=== PATIENT | male | born 1940 | race Caucasian/White ===

== ENCOUNTER 2019-08-31 13:20 | Emergency (ER) | payer OTHER, MEDICARE ==
[2019-08-31] MEDS ORDERED: ALTOPREV20 MG PO (14:16)
[2019-08-31] MEDS ORDERED: ASPIRIN 81 LOW81 MG (14:17)
[2019-08-31] MEDS ORDERED: LABETALOL200 MG PO (14:17)
[2019-08-31] MEDS ORDERED: LISINOPRIL20 MG PO (14:17)
[2019-08-31] MEDS ORDERED: NORVASC5 M1 PO (14:17)
[2019-08-31] MEDS ORDERED: SYMBICORT 80-4.5MCG IN (14:18)
[2019-08-31] MEDS ORDERED: BICALUTAMIDE50 MG PO (14:19)
[2019-08-31 14:28] LABS: HEMATOCRIT 41.3 % (39.0-50.0); HEMOGLOBIN 13.7 g/dl (14.0-18.0); IMMATURE GRANULOCYTES 0.2 % (0.0-5.0); MEAN CELL VOLUME 89.4 fL CALC (80.0-100.0); MEAN CORPUSCULAR HGB 29.7 pG CALC (26.0-32.0); MEAN CORPUSCULAR HGB CONC 33.2 g/dL CAL (32.0-36.0); NEUT# 5.91 thou/uL (1.82-7.42); RED BLOOD COUNT 4.62 mill/uL (4.70-6.10); RED CELL DISTRI WIDTH 13.3 % (11.5-15.5)
[2019-08-31 14:52] LABS: ACT PARTIAL THROMBO TIME 29.4 SECONDS (20.0-32.5); ALBUMIN 4.3 g/dL (3.2-5.0); ALKALINE PHOSPHATASE 86 u/l (38-126); ANION GAP 12 (6-22 (CALC)); BILIRUBIN, TOTAL 0.8 mg/dL (0.0-1.4); BUN 19 mg/dL (8-23); BUN/CREATININE RATIO 20 (12-20 (CALC)); CARBON DIOXIDE 26 mmol/l (22-30); CHLORIDE 102 mmol/l (95-108); GFR > 60 ML/MIN (>=60 (CALC)); GFR FOR AFR.AMER. > 60 ML/MIN (>=60 (CALC)); PROTHROMBIN TIME 10.9 SECONDS (9.0-12.5); SGOT/AST 25 u/l (19-48); SODIUM 136 mmol/l (137-146); TOTAL PROTEIN 7.1 g/dL (6.3-8.2)
[2019-08-31] MEDS ORDERED: FLONASE AL50 MCG/ACT (16:27)
[2019-08-31] MEDS ORDERED: CLARITIN10 M1 PO ×2 (16:27)
[2019-08-31 16:40] VITALS: BP 147/67
== END 2019-08-31 16:45 | disposition home or self-care (01) | DRG 305 ==
LOC: ED 13:20
DX: I10 Essential (primary) hypertension (principal); H66.91 Otitis media, unspecified, right ear; J44.9 Chronic obstructive pulmonary disease, unspecified; Z95.5 Presence of coronary angioplasty implant and graft
CPT/HCPCS: Q9967

== ENCOUNTER 2019-12-31 09:18 | Emergency (ER) | payer OTHER, MEDICARE ==
[~2019-12-31] VITALS: Ht 172.7 cm; Wt 81.8 kg
[~2019-12-31 09:18] MED LIST: ALTOPREV20 MG PO; ASPIRIN 81 LOW81 MG; BICALUTAMIDE50 MG PO; CLARITIN10 M1 PO; FLONASE AL50 MCG/ACT; LABETALOL200 MG PO; LISINOPRIL20 MG PO; NORVASC5 M1 PO; SYMBICORT 80-4.5MCG IN
[2019-12-31] MEDS ORDERED: FLEXERIL5 M1 PO (10:46)
[2019-12-31] MEDS ORDERED: IBUPROFEN600 MG PO (10:46)
[2019-12-31 11:21] VITALS: BP 156/80
== END 2019-12-31 11:00 | disposition home or self-care (01) | DRG 563 ==
LOC: ED 09:18
DX: S39.012A Strain of muscle, fascia and tendon of lower back, initial encounter (principal); I10 Essential (primary) hypertension; J44.9 Chronic obstructive pulmonary disease, unspecified; I71.4 Abdominal aortic aneurysm, without rupture; X50.0XXA Overexertion from strenuous movement or load, initial encounter; Y93.H2 Activity, gardening and landscaping; Y92.007 Garden or yard of unspecified non-institutional (private) residence as the place of occurrence of the external cause; Z95.5 Presence of coronary angioplasty implant and graft

== ENCOUNTER 2020-02-04 10:21 | Emergency (ER) | payer OTHER, MEDICARE ==
[~2020-02-04] VITALS: Ht 172.7 cm; Wt 90.0 kg
[~2020-02-04 10:21] MED LIST changes: +FLEXERIL5 M1 PO; +IBUPROFEN600 MG PO
[2020-02-04] MEDS ORDERED: HYDROCO/APAP1 TA9 PO (11:05)
[2020-02-04] MEDS ORDERED: VALACYCLOVIR500 MG PO (11:05)
[2020-02-04 11:24] VITALS: BP 142/84
== END 2020-02-04 11:35 | disposition home or self-care (01) | DRG 596 ==
LOC: ED 10:21
DX: B02.9 Zoster without complications (principal); I10 Essential (primary) hypertension; J44.9 Chronic obstructive pulmonary disease, unspecified; Z95.5 Presence of coronary angioplasty implant and graft

== ENCOUNTER 2020-10-30 09:52 | Emergency (ER) | payer OTHER, MEDICARE ==
[~2020-10-30 09:52] MED LIST changes: +HYDROCO/APAP1 TA9 PO; +VALACYCLOVIR500 MG PO
[2020-10-30 11:35] VITALS: BP 131/83
== END 2020-10-30 11:35 | disposition home or self-care (01) | DRG 918 ==
LOC: ED 09:52
DX: T63.461A Toxic effect of venom of wasps, accidental (unintentional), initial encounter (principal); I10 Essential (primary) hypertension; J44.9 Chronic obstructive pulmonary disease, unspecified; F17.200 Nicotine dependence, unspecified, uncomplicated; Y92.007 Garden or yard of unspecified non-institutional (private) residence as the place of occurrence of the external cause; Z95.5 Presence of coronary angioplasty implant and graft

== ENCOUNTER 2021-06-25 03:39 | Emergency (ER) | payer OTHER, MEDICARE ==
[~2021-06-25] VITALS: Ht 172.7 cm; Wt 82.0 kg
[2021-06-25 03:51] VITALS: BP 172/87
[2021-06-25 04:26] LABS: HEMATOCRIT 37.1 % (39.0-50.0); HEMOGLOBIN 12.4 g/dl (14.0-18.0); IMMATURE GRANULOCYTES 0.7 % (0.0-5.0); MEAN CELL VOLUME 91.6 fL CALC (80.0-100.0); MEAN CORPUSCULAR HGB 30.6 pG CALC (26.0-32.0); MEAN CORPUSCULAR HGB CONC 33.4 g/dL CAL (32.0-36.0); NEUT# 6.61 thou/uL (1.82-7.42); RED BLOOD COUNT 4.05 mill/uL (4.70-6.10); RED CELL DISTRI WIDTH 14.2 % (11.5-15.5)
[2021-06-25 04:48] LABS: ALBUMIN 3.7 g/dL (3.2-5.0); ALKALINE PHOSPHATASE 85 u/l (38-126); AMYLASE 61 u/l (30-110); ANION GAP 9 (6-22 (CALC)); BUN 18 mg/dL (8-23); BUN/CREATININE RATIO 20 (12-20 (CALC)); CARBON DIOXIDE 33 mmol/l (22-30); CHLORIDE 89 mmol/l (95-108); CREATININE 0.9 mg/dL (0.7-1.3); GFR > 60 ML/MIN (>=60 (CALC)); GFR FOR AFR.AMER. > 60 ML/MIN (>=60 (CALC)); LIPASE 43 u/l (23-300); POTASSIUM 3.1 mmol/l (3.5-5.1); SGOT/AST 27 u/l (19-48); SODIUM 128 mmol/l (137-146); TOTAL PROTEIN 6.4 g/dL (6.3-8.2)
[2021-06-25 05:51] LABS: URINE BILIRUBIN - DIPSTICK NEGATIVE (NEGATIVE); URINE BLOOD DIPSTICK TRACE-INTACT (NEGATIVE); URINE COLOR YELLOW; URINE GLUCOSE - DIPSTICK NEGATIVE (NEGATIVE); URINE KETONE TRACE mg/dL (NEGATIVE); URINE LEUK ESTERASE NEGATIVE (NEGATIVE); URINE PROTEIN - DIPSTICK NEGATIVE (NEG-TRACE); URINE SPECIFIC GRAVITY 1.015; URINE UROBILINOGEN - DIPSTICK 0.2 E.U./dL (0.2)
[2021-06-25 05:56] LABS: URINE NITRITE - DIPSTICK NEGATIVE (Negative)
[2021-06-25] MEDS ORDERED: PROMETHAZINE HY25 M1 PO (06:34)
[2021-06-25 06:54] VITALS: BP 172/87
== END 2021-06-25 07:33 | disposition home or self-care (01) | DRG 392 ==
LOC: ED 03:39
PROVIDERS: Family Medicine
DX: K52.9 Noninfective gastroenteritis and colitis, unspecified (principal); I10 Essential (primary) hypertension; J44.9 Chronic obstructive pulmonary disease, unspecified; Z85.46 Personal history of malignant neoplasm of prostate; Z20.822 Contact with and (suspected) exposure to COVID-19

== ENCOUNTER 2021-09-26 19:16 | Emergency (ER) | payer OTHER, MEDICARE ==
[2021-09-26] VITALS (11 sets, daily range): BP systolic 142–199; BP diastolic 76–98
[~2021-09-26] VITALS: Ht 172.7 cm; Wt 84.9 kg
[~2021-09-26 19:16] MED LIST changes: +LISINOPRIL20 M1 PO; -LISINOPRIL20 MG PO; +PROMETHAZINE HY25 M1 PO
[2021-09-26] MEDS ORDERED: ABIRATERONE AC250 MG PO (19:52)
[2021-09-26] MEDS ORDERED: PREDNISONE5 MG PO (19:53)
[2021-09-26 20:09] LABS: HEMATOCRIT 37.4 % (39.0-50.0); HEMOGLOBIN 12.4 g/dl (14.0-18.0); IMMATURE GRANULOCYTES 0.2 % (0.0-5.0); MEAN CORPUSCULAR HGB 30.8 pG CALC (26.0-32.0); MEAN CORPUSCULAR HGB CONC 33.2 g/dL CAL (32.0-36.0); NEUT# 7.58 thou/uL (1.82-7.42); RED BLOOD COUNT 4.02 mill/uL (4.70-6.10); RED CELL DISTRI WIDTH 14.1 % (11.5-15.5)
[2021-09-26 20:20] LABS: ALKALINE PHOSPHATASE 84 u/l (38-126); ANION GAP 10 (6-22 (CALC)); BILIRUBIN, TOTAL 0.7 mg/dL (0.0-1.4); BUN 31 mg/dL (8-23); BUN/CREATININE RATIO 29 (12-20 (CALC)); CARBON DIOXIDE 29 mmol/l (22-30); CHLORIDE 90 mmol/l (95-108); CREATININE 1.1 mg/dL (0.7-1.3); GFR FOR AFR.AMER. > 60 ML/MIN (>=60 (CALC)); GFR OTHER RACES > 60 ML/MIN (>=60 (CALC)); SGOT/AST 26 u/l (19-48); SODIUM 125 mmol/l (137-146); TOTAL PROTEIN 6.8 g/dL (6.3-8.2)
[2021-09-26 20:21] LABS: POTASSIUM 3.8 mmol/l (3.5-5.1)
[2021-09-26 20:32] LABS: MYOGLOBIN 143 ng/mL (0 - 121)
[2021-09-26] MEDS ORDERED: SOD CHLORIDE1 G2 OD (22:30)
== END 2021-09-26 23:02 | disposition home or self-care (01) | DRG 305 ==
LOC: ED 19:16
PROVIDERS: Family Medicine
DX: I10 Essential (primary) hypertension (principal); E87.1 Hypo-osmolality and hyponatremia; J44.9 Chronic obstructive pulmonary disease, unspecified; Z95.5 Presence of coronary angioplasty implant and graft

== ENCOUNTER 2021-10-31 02:29 | Emergency (ER) | payer OTHER, MEDICARE ==
[~2021-10-31] VITALS: Ht 172.7 cm; Wt 81.6 kg
[2021-10-31] VITALS (10 sets, daily range): BP systolic 154–203; BP diastolic 87–115
[~2021-10-31 02:29] MED LIST changes: +ABIRATERONE AC250 MG PO; +PREDNISONE5 MG PO; +SOD CHLORIDE1 G2 OD
[2021-10-31 03:21] LABS: HEMATOCRIT 38.8 % (39.0-50.0); HEMOGLOBIN 12.7 g/dl (14.0-18.0); IMMATURE GRANULOCYTES 0.3 % (0.0-5.0); MEAN CORPUSCULAR HGB 30.5 pG CALC (26.0-32.0); MEAN CORPUSCULAR HGB CONC 32.7 g/dL CAL (32.0-36.0); NEUT# 7.62 thou/uL (1.82-7.42); RED BLOOD COUNT 4.17 mill/uL (4.70-6.10); RED CELL DISTRI WIDTH 14.1 % (11.5-15.5)
[2021-10-31 04:03] LABS: ALBUMIN 4.1 g/dL (3.2-5.0); ALKALINE PHOSPHATASE 84 u/l (38-126); BILIRUBIN, TOTAL 0.6 mg/dL (0.0-1.4); BUN 33 mg/dL (8-23); BUN/CREATININE RATIO 26 (12-20 (CALC)); CARBON DIOXIDE 27 mmol/l (22-30); CHLORIDE 96 mmol/l (95-108); CREATININE 1.3 mg/dL (0.7-1.3); GFR FOR AFR.AMER. > 60 ML/MIN (>=60 (CALC)); GFR OTHER RACES 53 ML/MIN (>=60 (CALC)); SGOT/AST 27 u/l (19-48); SODIUM 131 mmol/l (137-146); TOTAL PROTEIN 6.7 g/dL (6.3-8.2)
[2021-10-31 04:12] LABS: ANION GAP 13 (6-22 (CALC)); POTASSIUM 4.7 mmol/l (3.5-5.1)
[2021-10-31 04:14] LABS: MYOGLOBIN 152 ng/mL (0 - 121)
== END 2021-10-31 05:15 | disposition home or self-care (01) | DRG 305 ==
LOC: ED 02:29
PROVIDERS: Emergency Medicine
DX: I10 Essential (primary) hypertension (principal); J44.9 Chronic obstructive pulmonary disease, unspecified; Z95.5 Presence of coronary angioplasty implant and graft; Z20.822 Contact with and (suspected) exposure to COVID-19

== ENCOUNTER 2021-11-02 09:15 | Observation (INO) | payer OTHER, MEDICARE ==
[2021-11-02] VITALS (23 sets, daily range): BP systolic 110–182; BP diastolic 67–95
[~2021-11-02] VITALS: Ht 172.7 cm; Wt 81.8 kg
--- NOTE | 2021-11-02 09:20 | NUR ---
PT AMB TO ROOM WITH STEADY GAIT WITH SPOUSE
[2021-11-02 09:50] LABS: ALBUMIN 3.7 g/dL (3.2-5.0); ALKALINE PHOSPHATASE 73 u/l (38-126); ANION GAP 11 (6-22 (CALC)); BILIRUBIN, TOTAL 1.1 mg/dL (0.0-1.4); BUN 25 mg/dL (8-23); BUN/CREATININE RATIO 24 (12-20 (CALC)); CARBON DIOXIDE 28 mmol/l (22-30); CHLORIDE 87 mmol/l (95-108); GFR FOR AFR.AMER. > 60 ML/MIN (>=60 (CALC)); GFR OTHER RACES > 60 ML/MIN (>=60 (CALC)); POTASSIUM 3.9 mmol/l (3.5-5.1); SGOT/AST 26 u/l (19-48); SODIUM 122 mmol/l (137-146); TOTAL PROTEIN 6.1 g/dL (6.3-8.2)
--- NOTE | 2021-11-02 10:00 | NUR ---
reassessment done. nad. vitals stable. call light in reach
[2021-11-02 10:05] LABS: HEMATOCRIT 36.4 % (39.0-50.0); HEMOGLOBIN 12.5 g/dl (14.0-18.0); IMMATURE GRANULOCYTES 0.2 % (0.0-5.0); MEAN CELL VOLUME 89.7 fL CALC (80.0-100.0); MEAN CORPUSCULAR HGB 30.8 pG CALC (26.0-32.0); MEAN CORPUSCULAR HGB CONC 34.3 g/dL CAL (32.0-36.0); NEUT# 8.45 thou/uL (1.82-7.42); RED BLOOD COUNT 4.06 mill/uL (4.70-6.10); RED CELL DISTRI WIDTH 13.4 % (11.5-15.5)
[2021-11-02 10:19] LABS: URINE BLOOD DIPSTICK TRACE-INTACT (NEGATIVE); URINE COLOR YELLOW; URINE GLUCOSE - DIPSTICK NEGATIVE (NEGATIVE); URINE KETONE 15 mg/dL (NEGATIVE); URINE LEUK ESTERASE NEGATIVE (NEGATIVE); URINE PH 6.5 (4.5-8.0); URINE PROTEIN - DIPSTICK NEGATIVE (NEG-TRACE); URINE UROBILINOGEN - DIPSTICK 0.2 E.U./dL (0.2)
[2021-11-02 10:37] LABS: URINE BILIRUBIN - DIPSTICK SMALL (NEGATIVE); URINE NITRITE - DIPSTICK NEGATIVE (Negative)
--- NOTE | 2021-11-02 11:04 | NUR ---
reassessment done. nad. vitals stable. call light in reach.
[2021-11-02] MEDS ORDERED: SYMBICORT 80-4.5MCG IN (11:26)
--- NOTE | 2021-11-02 12:44 | NUR ---
REASSESMENT DONE. NAD. VITALS STABLE. CALL LIGHT IN REACH.
--- NOTE | 2021-11-02 13:10 | NUR ---
REASSESSMENT DONE. NAD. VITALS STABLE. CALL LIGHT IN REACH.
--- NOTE | 2021-11-02 14:00 | NUR ---
REASSESSMENT DONE. NAD. VITALS STABLE. CALL LIGHT IN REACH
--- NOTE | 2021-11-02 14:09 | NUR ---
Reassessment done. NAD. VITALS STABLE. CALL LIGHT IN REACH.
--- NOTE | 2021-11-02 15:45 | NUR ---
REASSESSMENT DONE. NAD. VITALS STABLE. CALL LIGHT IN REACH.
--- NOTE | 2021-11-02 16:51 | NUR ---
patient transported to [facility] surge room 269. report given to christopher hatch
--- NOTE | 2021-11-02 19:00 | NUR ---
RECAEIVE REPORT FROM RAFAEL SANTOS.
--- NOTE | 2021-11-02 19:30 | NUR ---
PATIENT IN BED RESTING/ NO S/S OF DISTRESS NOTED. DENIES PAIN AT THIS TIME ADMISSION ASSESMENT COMPLETED AT THIS TIME. PATIENT HAS A 18G IV TO RAC WITH NS AT 50ML/HR INFUSING WELL WITHOUT COMPLICATIONS. ADMISSION DX HYPONATREMIA. SODIUM AT 122. PT ON TELE. CALL LIGHT IN REACH AND BED IN LOWEST POSITION. CONTINUE TO MONITOR.
[2021-11-02 21:59] LABS: ANION GAP 8 (6-22 (CALC)); BUN 24 mg/dL (8-23); BUN/CREATININE RATIO 25 (12-20 (CALC)); CARBON DIOXIDE 28 mmol/l (22-30); CHLORIDE 89 mmol/l (95-108); GFR FOR AFR.AMER. > 60 ML/MIN (>=60 (CALC)); GFR OTHER RACES > 60 ML/MIN (>=60 (CALC)); POTASSIUM 3.7 mmol/l (3.5-5.1); SODIUM 121 mmol/l (137-146)
--- NOTE | 2021-11-02 22:45 | NUR ---
PATIENT COMPLAING OF NAUSEA. DR CLEVELAND NOTIFIED AND ONDER ZOFRAN 4 MG IV. PATIENT MEDICATED ORDER. CONTINUE TO MONITOR.
[2021-11-03 00:07] VITALS: BP 153/80
--- NOTE | 2021-11-03 00:28 | NUR ---
PATIENT IN BED RESTING WITH EYES CLOSED BREATHING EVEN AND UNLABORED. NO S/S OF DISTRESS NOTED. CALL LIGHT IN REACH AND BED IN LOWEST POSITION. CONTINUE TO MONITOR.
[2021-11-03 04:04] VITALS: BP 134/77
--- NOTE | 2021-11-03 04:30 | NUR ---
PATIEN IN BED RESTING WITH EYES CLOSED BREATHING EVEN AND UNALBORED NO S/S OF DISTRESS NOTED. CALL LIGHT IN REACH AND BED IN LOWEST POSITION.
[2021-11-03 05:23] LABS: HEMOGLOBIN 11.6 g/dl (14.0-18.0); IMMATURE GRANULOCYTES 0.2 % (0.0-5.0); MEAN CELL VOLUME 88.9 fL CALC (80.0-100.0); MEAN CORPUSCULAR HGB 31.3 pG CALC (26.0-32.0); MEAN CORPUSCULAR HGB CONC 35.2 g/dL CAL (32.0-36.0); NEUT# 7.13 thou/uL (1.82-7.42); RED BLOOD COUNT 3.71 mill/uL (4.70-6.10); RED CELL DISTRI WIDTH 13.3 % (11.5-15.5)
[2021-11-03 07:15] VITALS: BP 118/75
[2021-11-03 07:17] LABS: MAGNESIUM 1.8 mg/dL (1.6-2.3)
[2021-11-03 07:19] LABS: ALKALINE PHOSPHATASE 62 u/l (38-126); ANION GAP 6 (6-22 (CALC)); BILIRUBIN, TOTAL 0.7 mg/dL (0.0-1.4); BUN 19 mg/dL (8-23); BUN/CREATININE RATIO 21 (12-20 (CALC)); CARBON DIOXIDE 29 mmol/l (22-30); CHLORIDE 90 mmol/l (95-108); CREATININE 0.9 mg/dL (0.7-1.3); GFR FOR AFR.AMER. > 60 ML/MIN (>=60 (CALC)); GFR OTHER RACES > 60 ML/MIN (>=60 (CALC)); POTASSIUM 3.4 mmol/l (3.5-5.1); SGOT/AST 22 u/l (19-48); SODIUM 122 mmol/l (137-146); TOTAL PROTEIN 4.9 g/dL (6.3-8.2)
[2021-11-03 07:24] LABS: ALBUMIN 2.8 g/dL (3.2-5.0)
--- NOTE | 2021-11-03 08:00 | NUR ---
patient is a/ox3 able to make needs known to staff. denies pain at this time. stated he felt "a little nausea before breakfast". offered ama peng and crackers, informed him if that doesnt help call me and ill give him more zofran. he stated that was a great plan. clear speech. 3mm perrl bilat eyes. clear lung sounds. active bowel sounds. soft non tender abdomen. no edema present at this time. strong pulses. safety measures in place. call light in reach. will continue to monitor per hospital's policy.
[2021-11-03 09:48] LABS: ANION GAP 6 (6-22 (CALC)); BUN 20 mg/dL (8-23); BUN/CREATININE RATIO 23 (12-20 (CALC)); CARBON DIOXIDE 28 mmol/l (22-30); CHLORIDE 90 mmol/l (95-108); CREATININE 0.9 mg/dL (0.7-1.3); GFR FOR AFR.AMER. > 60 ML/MIN (>=60 (CALC)); GFR OTHER RACES > 60 ML/MIN (>=60 (CALC)); POTASSIUM 3.2 mmol/l (3.5-5.1); SODIUM 121 mmol/l (137-146)
[2021-11-03 10:29] VITALS: BP 125/75
[2021-11-03] MEDS ORDERED: ONDANSETRON4 MG PO (11:46)
--- NOTE | 2021-11-03 13:13 | NUR ---
REVIEWED D/C PAPERWORK WITH EBER AND HIS AT THE BEDSIDE. STATED HE UNDERSTOOD. SIGNED FORM. REMOVED IV, ALLOWED HIM TO GET DRESSED.
--- NOTE | 2021-11-03 13:25 | NUR ---
PATIENT WHEELED DOWN TO HIS CAR, AT SIDE WITH HIS BELONGINGS, STABLE.
== END 2021-11-03 13:27 | disposition home or self-care (01) | DRG 641 ==
LOC: ED 09:15 → ED-I 10:50 → ED 11:07 → MS2 11:08
PROVIDERS: Family Medicine; ADMIT Internal Medicine; ATTEND Internal Medicine
DX: E87.1 Hypo-osmolality and hyponatremia (principal); I71.4 Abdominal aortic aneurysm, without rupture; R11.2 Nausea with vomiting, unspecified; I10 Essential (primary) hypertension; J44.9 Chronic obstructive pulmonary disease, unspecified; T50.3X6A Underdosing of electrolytic, caloric and water-balance agents, initial encounter; Z91.128 Patient's intentional underdosing of medication regimen for other reason; Z95.5 Presence of coronary angioplasty implant and graft; Z85.46 Personal history of malignant neoplasm of prostate; Z20.822 Contact with and (suspected) exposure to COVID-19
CPT/HCPCS: Q9967

== ENCOUNTER 2022-01-07 18:42 | Emergency (ER) | payer OTHER, MEDICARE ==
[~2022-01-07] VITALS: Ht 172.7 cm; Wt 84.0 kg
[~2022-01-07 18:42] MED LIST changes: +ONDANSETRON4 MG PO
[2022-01-07 19:20] LABS: HEMATOCRIT 32.4 % (39.0-50.0); IMMATURE GRANULOCYTES 0.2 % (0.0-5.0); MEAN CELL VOLUME 90.8 fL CALC (80.0-100.0); MEAN CORPUSCULAR HGB 30.8 pG CALC (26.0-32.0); NEUT# 4.36 thou/uL (1.82-7.42); RED BLOOD COUNT 3.57 mill/uL (4.70-6.10); RED CELL DISTRI WIDTH 13.9 % (11.5-15.5)
[2022-01-07 19:29] LABS: ALKALINE PHOSPHATASE 90 u/l (38-126); ANION GAP 12 (6-22 (CALC)); BILIRUBIN, TOTAL 0.5 mg/dL (0.0-1.4); BUN 18 mg/dL (8-23); BUN/CREATININE RATIO 20 (12-20 (CALC)); CARBON DIOXIDE 29 mmol/l (22-30); CHLORIDE 90 mmol/l (95-108); CREATININE 0.9 mg/dL (0.7-1.3); GFR FOR AFR.AMER. > 60 ML/MIN (>=60 (CALC)); GFR OTHER RACES > 60 ML/MIN (>=60 (CALC)); POTASSIUM 3.4 mmol/l (3.5-5.1); SODIUM 127 mmol/l (137-146)
[2022-01-07 19:40] LABS: ALBUMIN 3.7 g/dL (3.2-5.0); SGOT/AST 49 u/l (19-48)
[2022-01-07] MEDS ORDERED: CLONIDINE0.1 MG PO (20:29)
[2022-01-07 20:39] VITALS: BP 155/89
== END 2022-01-07 20:44 | disposition home or self-care (01) | DRG 641 ==
LOC: ED 18:42
PROVIDERS: Nurse Practitioner
DX: E87.1 Hypo-osmolality and hyponatremia (principal); I10 Essential (primary) hypertension

== ENCOUNTER 2022-02-11 12:55 | Emergency (ER) | payer OTHER, MEDICARE ==
[~2022-02-11] VITALS: Ht 172.7 cm; Wt 85.0 kg
[~2022-02-11 12:55] MED LIST changes: +CLONIDINE0.1 MG PO
[2022-02-11 13:25] VITALS: BP 164/84
[2022-02-11 13:30] VITALS: BP 166/86
[2022-02-11 13:40] LABS: HEMATOCRIT 34.2 % (39.0-50.0); HEMOGLOBIN 11.5 g/dl (14.0-18.0); IMMATURE GRANULOCYTES 0.2 % (0.0-5.0); MEAN CELL VOLUME 90.5 fL CALC (80.0-100.0); MEAN CORPUSCULAR HGB 30.4 pG CALC (26.0-32.0); MEAN CORPUSCULAR HGB CONC 33.6 g/dL CAL (32.0-36.0); NEUT# 9.56 thou/uL (1.82-7.42); RED BLOOD COUNT 3.78 mill/uL (4.70-6.10); RED CELL DISTRI WIDTH 14.4 % (11.5-15.5)
[2022-02-11 13:51] LABS: ALBUMIN 3.9 g/dL (3.2-5.0); BILIRUBIN, TOTAL 0.7 mg/dL (0.0-1.4); CREATININE 1.5 mg/dL (0.7-1.3); TOTAL PROTEIN 6.1 g/dL (6.3-8.2)
[2022-02-11 14:00] LABS: POTASSIUM 4.8 mmol/l (3.5-5.1)
[2022-02-11 15:17] LABS: URINE BILIRUBIN - DIPSTICK NEGATIVE (NEGATIVE); URINE BLOOD DIPSTICK TRACE-INTACT (NEGATIVE); URINE COLOR YELLOW; URINE GLUCOSE - DIPSTICK NEGATIVE (NEGATIVE); URINE KETONE NEGATIVE (NEGATIVE); URINE LEUK ESTERASE NEGATIVE (NEGATIVE); URINE PH 6.5 (4.5-8.0); URINE PROTEIN - DIPSTICK NEGATIVE (NEG-TRACE); URINE UROBILINOGEN - DIPSTICK 0.2 E.U./dL (0.2)
[2022-02-11 15:19] LABS: URINE NITRITE - DIPSTICK NEGATIVE (Negative)
[2022-02-11] MEDS ORDERED: TRAMADOL HYDROC50 M1 PO (15:50)
[2022-02-11 15:58] VITALS: BP 164/84
[2022-02-12] MEDS ORDERED: CIPROFLOXACN750 MG PO (11:56)
[2022-02-12] MEDS ORDERED: COLACE100 MG PO (11:56)
[2022-02-12] MEDS ORDERED: PERCOCET 5/325M1 TAB PO (11:56)
== END 2022-02-11 16:08 | disposition home or self-care (01) | DRG 694 ==
LOC: ED 12:55
PROVIDERS: Nurse Practitioner
DX: N23 Unspecified renal colic (principal); I12.9 Hypertensive chronic kidney disease with stage 1 through stage 4 chronic kidney disease, or unspecified chronic kidney disease; N18.9 Chronic kidney disease, unspecified; Z95.5 Presence of coronary angioplasty implant and graft; Z85.46 Personal history of malignant neoplasm of prostate; Z92.3 Personal history of irradiation

== ENCOUNTER 2022-02-12 04:54 | Emergency (ER) | payer OTHER, MEDICARE ==
[~2022-02-12] VITALS: Ht 172.7 cm; Wt 85.5 kg
[2022-02-12] VITALS (14 sets, daily range): BP systolic 109–182; BP diastolic 68–98
[~2022-02-12 04:54] MED LIST changes: +TRAMADOL HYDROC50 M1 PO
[2022-02-12 05:42] LABS: HEMOGLOBIN 10.7 g/dl (14.0-18.0); IMMATURE GRANULOCYTES 0.2 % (0.0-5.0); MEAN CELL VOLUME 91.7 fL CALC (80.0-100.0); MEAN CORPUSCULAR HGB 30.7 pG CALC (26.0-32.0); MEAN CORPUSCULAR HGB CONC 33.4 g/dL CAL (32.0-36.0); NEUT# 8.08 thou/uL (1.82-7.42); RED BLOOD COUNT 3.49 mill/uL (4.70-6.10); RED CELL DISTRI WIDTH 14.5 % (11.5-15.5)
[2022-02-12 05:55] LABS: ALBUMIN 3.6 g/dL (3.2-5.0); BILIRUBIN, TOTAL 0.6 mg/dL (0.0-1.4); CREATININE 1.9 mg/dL (0.7-1.3); POTASSIUM 4.1 mmol/l (3.5-5.1)
[2022-02-12 06:34] LABS: URINE BILIRUBIN - DIPSTICK NEGATIVE (NEGATIVE); URINE BLOOD DIPSTICK TRACE-INTACT (NEGATIVE); URINE COLOR YELLOW; URINE GLUCOSE - DIPSTICK NEGATIVE (NEGATIVE); URINE KETONE NEGATIVE (NEGATIVE); URINE LEUK ESTERASE NEGATIVE (NEGATIVE); URINE PH 5.5 (4.5-8.0); URINE PROTEIN - DIPSTICK NEGATIVE (NEG-TRACE); URINE UROBILINOGEN - DIPSTICK 0.2 E.U./dL (0.2)
[2022-02-12 06:38] LABS: URINE NITRITE - DIPSTICK NEGATIVE (Negative)
[2022-02-12] MEDS ORDERED: COLACE100 MG PO (11:56)
[2022-02-12] MEDS ORDERED: PERCOCET 5/325M1 TAB PO (11:56)
[2022-02-12] MEDS ORDERED: CIPROFLOXACN750 MG PO (11:56)
== END 2022-02-12 12:07 | disposition home or self-care (01) | DRG 392 ==
LOC: ED 04:54
PROVIDERS: Family Medicine
DX: R10.32 Left lower quadrant pain (principal); I10 Essential (primary) hypertension; Z95.5 Presence of coronary angioplasty implant and graft; Z85.46 Personal history of malignant neoplasm of prostate; Z92.3 Personal history of irradiation
CPT/HCPCS: Q9967

== ENCOUNTER 2022-02-24 13:52 | Emergency (ER) | payer OTHER, MEDICARE ==
[~2022-02-24] VITALS: Ht 172.7 cm; Wt 84.0 kg
[~2022-02-24 13:52] MED LIST changes: +CIPROFLOXACN750 MG PO; +COLACE100 MG PO; +PERCOCET 5/325M1 TAB PO
[2022-02-24 14:59] LABS: HEMATOCRIT 30.8 % (39.0-50.0); HEMOGLOBIN 10.3 g/dl (14.0-18.0); IMMATURE GRANULOCYTES 0.6 % (0.0-5.0); MEAN CELL VOLUME 90.6 fL CALC (80.0-100.0); MEAN CORPUSCULAR HGB 30.3 pG CALC (26.0-32.0); MEAN CORPUSCULAR HGB CONC 33.4 g/dL CAL (32.0-36.0); NEUT# 8.6 thou/uL (1.82-7.42); RED BLOOD COUNT 3.4 mill/uL (4.70-6.10)
[2022-02-24 15:11] LABS: ALBUMIN 3.6 g/dL (3.2-5.0); BILIRUBIN, TOTAL 0.4 mg/dL (0.0-1.4); CREATININE 1.9 mg/dL (0.7-1.3); TOTAL PROTEIN 6.2 g/dL (6.3-8.2)
[2022-02-24 15:21] LABS: POTASSIUM 3.1 mmol/l (3.5-5.1)
[2022-02-24 16:37] VITALS: BP 157/87
[2022-02-24 16:40] LABS: URINE BILIRUBIN - DIPSTICK NEGATIVE (NEGATIVE); URINE BLOOD DIPSTICK TRACE-INTACT (NEGATIVE); URINE COLOR YELLOW; URINE GLUCOSE - DIPSTICK NEGATIVE (NEGATIVE); URINE KETONE NEGATIVE (NEGATIVE); URINE LEUK ESTERASE NEGATIVE (NEGATIVE); URINE PROTEIN - DIPSTICK NEGATIVE (NEG-TRACE); URINE SPECIFIC GRAVITY 1.015; URINE UROBILINOGEN - DIPSTICK 0.2 E.U./dL (0.2)
[2022-02-24 16:50] LABS: URINE NITRITE - DIPSTICK NEGATIVE (Negative)
== END 2022-02-24 16:48 | disposition home or self-care (01) | DRG 700 ==
LOC: ED 13:52
PROVIDERS: Family Medicine
DX: N28.9 Disorder of kidney and ureter, unspecified (principal)

== ENCOUNTER 2022-03-08 08:43 | Observation (INO) | payer OTHER, MEDICARE ==
[2022-03-08] VITALS (21 sets, daily range): BP systolic 126–168; BP diastolic 64–92
[~2022-03-08] VITALS: Ht 172.7 cm; Wt 80.3 kg
[2022-03-08 09:18] LABS: HEMATOCRIT 27.8 % (39.0-50.0); HEMOGLOBIN 9.8 g/dl (14.0-18.0); IMMATURE GRANULOCYTES 0.2 % (0.0-5.0); MEAN CELL VOLUME 88.5 fL CALC (80.0-100.0); MEAN CORPUSCULAR HGB 31.2 pG CALC (26.0-32.0); MEAN CORPUSCULAR HGB CONC 35.3 g/dL CAL (32.0-36.0); NEUT# 7.77 thou/uL (1.82-7.42); RED BLOOD COUNT 3.14 mill/uL (4.70-6.10); RED CELL DISTRI WIDTH 14.2 % (11.5-15.5)
[2022-03-08 09:29] LABS: ALBUMIN 3.6 g/dL (3.2-5.0); POTASSIUM 3.2 mmol/l (3.5-5.1); TOTAL PROTEIN 5.8 g/dL (6.3-8.2)
[2022-03-08 09:37] LABS: BILIRUBIN, TOTAL 0.6 mg/dL (0.0-1.4); CREATININE 3.1 mg/dL (0.7-1.3)
[2022-03-08 11:05] LABS: URINE BILIRUBIN - DIPSTICK NEGATIVE (NEGATIVE); URINE BLOOD DIPSTICK NEGATIVE (NEGATIVE); URINE COLOR YELLOW; URINE GLUCOSE - DIPSTICK NEGATIVE (NEGATIVE); URINE KETONE NEGATIVE (NEGATIVE); URINE LEUK ESTERASE NEGATIVE (NEGATIVE); URINE PROTEIN - DIPSTICK NEGATIVE (NEG-TRACE); URINE UROBILINOGEN - DIPSTICK 0.2 E.U./dL (0.2)
[2022-03-08 11:08] LABS: URINE NITRITE - DIPSTICK NEGATIVE (Negative)
[2022-03-09] VITALS (9 sets, daily range): BP systolic 126–174; BP diastolic 72–99
[2022-03-09 05:46] LABS: HEMATOCRIT 27.2 % (39.0-50.0); HEMOGLOBIN 9.4 g/dl (14.0-18.0); IMMATURE GRANULOCYTES 0.2 % (0.0-5.0); MEAN CELL VOLUME 90.4 fL CALC (80.0-100.0); MEAN CORPUSCULAR HGB 31.2 pG CALC (26.0-32.0); MEAN CORPUSCULAR HGB CONC 34.6 g/dL CAL (32.0-36.0); NEUT# 6.86 thou/uL (1.82-7.42); RED BLOOD COUNT 3.01 mill/uL (4.70-6.10); RED CELL DISTRI WIDTH 14.2 % (11.5-15.5)
[2022-03-09 06:12] LABS: BILIRUBIN, TOTAL 0.5 mg/dL (0.0-1.4); CHOLESTEROL HDL RATIO 3.3 (<4.4 (CALC)); CREATININE 3.2 mg/dL (0.7-1.3); POTASSIUM 3.2 mmol/l (3.5-5.1)
[2022-03-09] MEDS ORDERED: NORVASC5 M1 PO (10:13)
[2022-03-09] MEDS ORDERED: TAMSULOSIN0.4 MG PO (11:21)
[2022-03-09] MEDS ORDERED: SPIRONOLACTONE25 MG PO (11:23)
[2022-03-09] MEDS ORDERED: WIXELA INHUB 251 AER IN (11:31)
[2022-03-09] MEDS ORDERED: FLONASE AL50 MCG/ACT (11:32)
[2022-03-10] VITALS (7 sets, daily range): BP systolic 147–169; BP diastolic 79–88
[2022-03-10 05:38] LABS: ALBUMIN 2.9 g/dL (3.2-5.0); CREATININE 2.8 mg/dL (0.7-1.3); POTASSIUM 3.6 mmol/l (3.5-5.1)
[2022-03-10] MEDS ORDERED: PERCOCET 5/325M1 TAB PO (09:49)
== END 2022-03-10 12:04 | disposition home or self-care (01) | DRG 683 ==
LOC: ED 08:43 → ED-I 12:45 → ED 12:56 → ICU 12:57
PROVIDERS: Family Medicine; Internal Medicine Nephrology; ADMIT Internal Medicine; ATTEND Internal Medicine
DX: N17.0 Acute kidney failure with tubular necrosis (principal); E87.1 Hypo-osmolality and hyponatremia; N13.30 Unspecified hydronephrosis; E87.6 Hypokalemia; I12.9 Hypertensive chronic kidney disease with stage 1 through stage 4 chronic kidney disease, or unspecified chronic kidney disease; N18.30 Chronic kidney disease, stage 3 unspecified; K59.03 Drug induced constipation; T40.605A Adverse effect of unspecified narcotics, initial encounter; D63.1 Anemia in chronic kidney disease; Z85.46 Personal history of malignant neoplasm of prostate; Z95.5 Presence of coronary angioplasty implant and graft; Z92.3 Personal history of irradiation; Z86.79 Personal history of other diseases of the circulatory system
CPT/HCPCS: J1756

== ENCOUNTER 2022-07-03 17:16 | Inpatient (IN) | payer MEDICARE ==
[2022-07-03] VITALS (12 sets, daily range): BP systolic 134–180; BP diastolic 72–88
[~2022-07-03] VITALS: Ht 172.7 cm; Wt 80.8 kg
[~2022-07-03 17:16] MED LIST changes: +SPIRONOLACTONE25 MG PO; +TAMSULOSIN0.4 MG PO; +WIXELA INHUB 251 AER IN
--- NOTE | 2022-07-03 17:25 | NUR ---
PATIENT TO ROOM 10
[2022-07-03 18:05] LABS: BASO% 0.1 % (0-3); EOS% 0.2 % (0-8); HEMATOCRIT 29.5 % (39.0-50.0); HEMOGLOBIN 9.9 g/dl (14.0-18.0); IMMATURE GRANULOCYTES 0.2 % (0.0-5.0); LYMPH% 3.6 % (15-41); MEAN CELL VOLUME 92.8 fL CALC (80.0-100.0); MEAN CORPUSCULAR HGB 31.1 pG CALC (26.0-32.0); MEAN CORPUSCULAR HGB CONC 33.6 g/dL CAL (32.0-36.0); MONO% 6.9 % (2-13); NEUT# 11.24 thou/uL (1.82-7.42); RED BLOOD COUNT 3.18 mill/uL (4.70-6.10); RED CELL DISTRI WIDTH 14.3 % (11.5-15.5)
[2022-07-03 18:06] LABS: URINE BILIRUBIN - DIPSTICK NEGATIVE (NEGATIVE); URINE BLOOD DIPSTICK SMALL (NEGATIVE); URINE COLOR YELLOW; URINE GLUCOSE - DIPSTICK NEGATIVE (NEGATIVE); URINE KETONE NEGATIVE (NEGATIVE); URINE LEUK ESTERASE NEGATIVE (NEGATIVE); URINE PROTEIN - DIPSTICK NEGATIVE (NEG-TRACE); URINE SPECIFIC GRAVITY <=1.005; URINE UROBILINOGEN - DIPSTICK 0.2 E.U./dL (0.2)
[2022-07-03 18:07] LABS: URINE NITRITE - DIPSTICK NEGATIVE (Negative)
--- NOTE | 2022-07-03 18:07 | NUR ---
PATIENT RESTING IN BED. NO ACUTE DISTRESS. OFFERED A WARM BLANKET. AT BEDSIDE. EDUCATED ON PLAN OF CARE
[2022-07-03 18:09] LABS: URINE WBC 0-2 WBC/hpf (0-5)
[2022-07-03 18:20] LABS: ALBUMIN 3.8 g/dL (3.2-5.0); BILIRUBIN, TOTAL 0.4 mg/dL (0.2-1.3)
[2022-07-03 18:23] LABS: CREATININE 5.3 mg/dL (0.7-1.3); TOTAL PROTEIN 6.6 g/dL (6.3-8.2)
--- NOTE | 2022-07-03 19:00 | NUR ---
Reassessment of patient completed. No distress noted. REPORT RECEIVED FROM JF HOUSER
--- NOTE | 2022-07-03 20:20 | NUR ---
REPORT CALLED UP TO MINNA SANTOS. PT IS BEING ADMITTED AND WILL BE TRANSPORTED VIA WHEELCHAIR. PT HAS NO CONCERNS OR QUESTIONS AT THIS TIME
[2022-07-03] MEDS ORDERED: OMEPRAZOLE20 MG PO (21:45)
[2022-07-04] VITALS (7 sets, daily range): BP systolic 122–156; BP diastolic 55–81
--- NOTE | 2022-07-04 | NUR ---
RECEIVED REPORT FROM ED NURSE SIS, PATIENT TARNSPORTED VIA WHEELCHAIR ARRIEVD TO FLOOR AT 2054, PATIENT ALERT ORIENTED AMBULATORY, IV SITE ON RT HAND PATENT FLUSHES WELL, LUNG SOUNDS CLEAR ACTIVE BOWEL SOUNDS. HAS RIVERA CATHETER DRAINING CLEAR YELLOW COLORED URINE, PATIENT ORIENTED TO ROOM AND CALL LIGHT SYSTEM.
--- NOTE | 2022-07-04 03:59 | NUR ---
PATIENT RESTING IN BED, EYES CLSOED, BREATHING EVEN UNLABORED, NOT IN DISTRESS, CALL LIGHT IN REACH.
[2022-07-04 05:48] LABS: BASO% 0.3 % (0-3); EOS% 1.4 % (0-8); HEMATOCRIT 29.7 % (39.0-50.0); HEMOGLOBIN 9.9 g/dl (14.0-18.0); IMMATURE GRANULOCYTES 0.2 % (0.0-5.0); LYMPH% 6.3 % (15-41); MEAN CORPUSCULAR HGB 31.3 pG CALC (26.0-32.0); MEAN CORPUSCULAR HGB CONC 33.3 g/dL CAL (32.0-36.0); MONO% 7.7 % (2-13); NEUT# 9.51 thou/uL (1.82-7.42); NEUT% 84.1 % (42-76); RED BLOOD COUNT 3.16 mill/uL (4.70-6.10); RED CELL DISTRI WIDTH 14.2 % (11.5-15.5)
[2022-07-04 06:07] LABS: ALBUMIN 3.3 g/dL (3.2-5.0); BILIRUBIN, TOTAL 0.3 mg/dL (0.2-1.3); CREATININE 4.7 mg/dL (0.7-1.3); POTASSIUM 2.8 mmol/l (3.5-5.1); TOTAL PROTEIN 5.4 g/dL (6.3-8.2)
--- NOTE | 2022-07-04 07:21 | NUR ---
LAB CALLED CRITICAL BUN 85, DARCY BORJA MADE AWARE.
--- NOTE | 2022-07-04 07:27 | NUR ---
RECEIVED REPORT FROM PM RN. PT RESTING IN BED, VSS, NO NEEDS AT THIS TIME. ALL SAFETY MEASURES IN PLACE.
--- NOTE | 2022-07-04 12:15 | NUR ---
PATIENT RESTING IN BED. SAFETY MEASURES IN PLACE, NO NEEDS AT THIS TIME. DECLINED ANY PAIN MEDICATION NEEDS.
--- NOTE | 2022-07-04 16:10 | NUR ---
PATIENT RESTING, COMPLAIN OF RIGHT FLANK PAIN, TYLENOL AND WARM TOWEL GIVEN. SAFETY PRECAUTIONS IN PLACE, NEEDS MEET.
--- NOTE | 2022-07-04 20:00 | NUR ---
RECEIVED REPORT FROM DAY SHIFT NURSE. PT SITTING ON BED WATCHING TV; A&O X3. EVEN AND UNLABORED RESPIRATIONS; CLEAR LUNG SOUNDS UPON AUSCULTATION. TELEMETRY IN PLACE. IV FLUSHED; #20 RT HAND, HEALTHY AND PATENT. ACTIVE BOWEL SOUNDS X4 QUADRANTS. RIVERA IN PLACE; TO GRAVITY WITH CLEAR YELLOW URINE. SAFETY PRECAUTIONS IN PLACE WITH CALL LIGHT IN REACH.
[2022-07-05] VITALS (9 sets, daily range): BP systolic 130–145; BP diastolic 63–82
--- NOTE | 2022-07-05 00:10 | NUR ---
PT RESTING ON BED WITH EYES CLOSED. NO DISTRESS OR PAIN NOTED. IV INFUSING FLUIDS PER ORDER. RIVERA IN PLACE; TO GRAVITY WITH CLEAR, YELLOW URINE. SAFETY PRECAUTIONS IN PLACE WITH CALL LIGHT IN REACH.
--- NOTE | 2022-07-05 04:25 | NUR ---
PT SITTING ON RECLINER. NO DISTRESS OR PAIN NOTED. HANGING NEW BAG OF FLUIDS, IV SITE HEALTHY AND PATENT. RIVERA IN PLACE; TO GRAVITY WITH CLEAR, YELLOW URINE. SAFETY PRECAUTIONS IN PLACE WITH CALL LIGHT IN REACH.
[2022-07-05 05:46] LABS: ALBUMIN 3.5 g/dL (3.2-5.0); CREATININE 3.9 mg/dL (0.7-1.3); MAGNESIUM 1.7 mg/dL (1.6-2.3); POTASSIUM 2.9 mmol/l (3.5-5.1)
--- NOTE | 2022-07-05 08:00 | NUR ---
PATIENT REPORT RECIEVED, PATIENT IN BED, NO COMPLAINTS AT THIS TIME, SAFETY MEASURES IN PLACE.
--- NOTE | 2022-07-05 12:00 | NUR ---
PATIENT COMPLAINED OF MID BACK PAIN ALONG WITH MIDSTERNUM PAIN, TROPONIN NEGATIVE, LUNGS CLEAR, DOCTOR AWARE. TYLENOL GIVEN FOR PAIN. URINE SLIGHT PINK IN COLOR, GOOD INTAKE AND OUTPUT. SAFETY MEASURES IN PLACE.
--- NOTE | 2022-07-05 17:30 | NUR ---
PATIENT IN BED, FAMILY AT BEDSIDE THIS AFTERNOON, WOULD LIKE TYLENOL WITH BEDTIME MEDS, SAFETY PRECAUTIONS IN PLACE.
--- NOTE | 2022-07-05 20:45 | NUR ---
PT IN BED WATCHING TV. ASSESMENT COMPLETED. PT REPORT PAIN TO BACK AND NECK, I EXPLAIN TO PT IS TO SOON FOR PAIN MED PT INDICATE UNDERSTANDING. BREATHING IS EVEN AND UNLABORED. NO S/S OF DISTRES NOTED. RIVERA CATH IN PLACED AND DRAING PINK TINT URINE. CALL LIGHT IN REACH AND BED IN LOWEST POSITION.
[2022-07-06] VITALS (30 sets, daily range): BP systolic 90–152; BP diastolic 45–83
--- NOTE | 2022-07-06 00:45 | NUR ---
PT REPORT PAIN TO BACK AND NECK. PT MEDICATED PER MAR. BREATHING IS EVEN AND UNLABORED. NO S/S OF DISTRESS NOTED. CALL LIGHT IN REACH AND BED IN LOWEST POSITION.
--- NOTE | 2022-07-06 04:50 | NUR ---
PT IS IN THE TOILET. PT REPORTS HAVING HARD TIME HAVING A BM. PT REQUEST SOME MILK OF MAG, PT MEDICATED ORDER. IV BECOME OCCLUDED, IV REMOVE IV CATH IS INTACT. NEW IV SITE STARTED TO LW #20 WITHOUT COMPLICATIONS. NO OTHER NEEDS OR CONCERM VOICED AT THIS TIME. CALL LIGHT IN REACH AND BED IN LOWEST POSITION.
[2022-07-06 05:46] LABS: ALBUMIN 3.5 g/dL (3.2-5.0); CREATININE 3.5 mg/dL (0.7-1.3)
[2022-07-06 05:52] LABS: POTASSIUM 3.8 mmol/l (3.5-5.1)
--- NOTE | 2022-07-06 07:49 | NUR ---
PATIENT RESTING IN BE, NO NEEDS AT THIS TIME,REFUSED PAIN MEDS, URINE IS YELLOW, CLEAR AND DRAINING IN RIVERA. SAFETY MEASURES IN PLACE.
--- NOTE | 2022-07-06 13:00 | NUR ---
PATIENT RESTING IN CHAIR. NO COMPLAINTS OF PAIN. SAFETY MEASURES IN PLACE.
--- NOTE | 2022-07-06 16:27 | NUR ---
ER CALLED , HEART RATE IN GOING UP TO 130S FOR THE LAST HOUR PATIENT CHECKED ON, SITTING IN CHAIR, NO SIGNS OR SYMPTOMS NOTED, PROVIDER NOTIFED , STRIPS RECIEVED WILL CONTINUE TO MONITOR.
--- NOTE | 2022-07-06 16:58 | NUR ---
EKG AND TROPONINS ORDERED, PATIENTS FAMILY IN THE ROOM.
[2022-07-06 18:14] LABS: BASO% 0.1 % (0-3); EOS% 0.2 % (0-8); HEMOGLOBIN 9.3 g/dl (14.0-18.0); IMMATURE GRANULOCYTES 0.3 % (0.0-5.0); LYMPH% 2.1 % (15-41); MEAN CELL VOLUME 96.3 fL CALC (80.0-100.0); MEAN CORPUSCULAR HGB 30.9 pG CALC (26.0-32.0); MEAN CORPUSCULAR HGB CONC 32.1 g/dL CAL (32.0-36.0); MONO% 5.2 % (2-13); NEUT# 16.96 thou/uL (1.82-7.42); NEUT% 92.1 % (42-76); RED BLOOD COUNT 3.01 mill/uL (4.70-6.10); RED CELL DISTRI WIDTH 14.4 % (11.5-15.5)
--- NOTE | 2022-07-06 18:21 | NUR ---
PATIENT TRANSFEREDTO ICU IN STABLE CONDITION, REPORT CALLED TO ICU NURSE. SAFETY MEASURES IN PLACE.
[2022-07-06 18:45] LABS: ACT PARTIAL THROMBO TIME 36.5 SECONDS (20.0-32.5); PROTHROMBIN TIME 12.6 SECONDS (9.0-12.5)
[2022-07-06 18:48] LABS: INTERNATIONAL NORMALIZED RATIO 1.3 RATIO (0.7-1.3)
[2022-07-07] VITALS (62 sets, daily range): BP systolic 99–131; BP diastolic 46–76
[2022-07-07 02:52] LABS: ALBUMIN 2.7 g/dL (3.2-5.0)
--- NOTE | 2022-07-07 08:00 | NUR ---
rcd report from [facility]. pt is now in NSR since 010. pt cardizem is at 5, will be stopping that per MD orders. heparin is still running at 1000u. pt is on ra. pt is not in pain. pt would just like to nap. plan is to have an echo and have cardiology consult.
--- NOTE | 2022-07-07 10:00 | NUR ---
no change in status. pt is in echo.
--- NOTE | 2022-07-07 12:00 | NUR ---
no change in pt status. pt is currently sleeping.
--- NOTE | 2022-07-07 14:00 | NUR ---
pt is napping in bedside chair. no change in status. pt does state he feels a little anxious because he wants to be back home.
--- NOTE | 2022-07-07 16:00 | NUR ---
pt is sitting up in bedside chair watching tv. no change in pt status.
--- NOTE | 2022-07-07 18:01 | NUR ---
no change in pt status. pt is eating.
[2022-07-08] VITALS (12 sets, daily range): BP systolic 97–116; BP diastolic 53–75
[2022-07-08 05:21] LABS: HEMATOCRIT 25.8 % (39.0-50.0); HEMOGLOBIN 8.4 g/dl (14.0-18.0); MEAN CELL VOLUME 97.4 fL CALC (80.0-100.0); MEAN CORPUSCULAR HGB 31.7 pG CALC (26.0-32.0); MEAN CORPUSCULAR HGB CONC 32.6 g/dL CAL (32.0-36.0); RED BLOOD COUNT 2.65 mill/uL (4.70-6.10); RED CELL DISTRI WIDTH 14.6 % (11.5-15.5)
[2022-07-08 05:35] LABS: CREATININE 3.1 mg/dL (0.7-1.3); MAGNESIUM 1.8 mg/dL (1.6-2.3); POTASSIUM 4.1 mmol/l (3.5-5.1)
--- NOTE | 2022-07-08 07:54 | NUR ---
REPORT RECEIVED FROM ARC WELDER - PT UP TO CHAIR - HAS NO COMPLAINTS OR NEEDS - CARDIZEM RUNNING AT 15 AND PT STABLE - NO S/S OF DISTRESS ON ROOM AIR - BED IN LOW LOCKED POSITION WITH SAFETY PRECAUTIONS IN PLACE - CALL LIGHT IN REACH
--- NOTE | 2022-07-08 09:17 | NUR ---
PER MD TITRATE PT OFF CARDIZEM AND CHANGED LABETALOL DOSAGE - PLAN IS TO DC HOME TODAY IF BP STABLE - WILL MONITOR - CALL LIGHT IN REACH
[2022-07-08] MEDS ORDERED: LABETALOL HYDR200 MG PO (10:36)
[2022-07-08] MEDS ORDERED: ELIQUIS2.5 MG PO (10:36)
[2022-07-08] MEDS ORDERED: FLEXERIL5 M1 PO (12:19)
--- NOTE | 2022-07-08 12:28 | NUR ---
REVIEWED DC INSTRUCTIONS WITH PATIENT, PT VERBALIZED UNDERSTANDING- PIV REMOVED AND GAUZE AND COBAN APPLIED - PT LEFT IN STABLE CONDITION WITH ALL PERSONAL BELONGINGS.
== END 2022-07-08 09:01 | DRG 683 ==
LOC: ED 17:16 → ED-I 19:15 → ED 19:34 → MS2 19:35 → ICU 07-04 08:08
PROVIDERS: Family Medicine; Internal Medicine; Internal Medicine Nephrology; Nurse Practitioner Family; ADMIT Internal Medicine; ATTEND Internal Medicine
PROC: 0T9B70Z Drainage of Bladder with Drainage Device, Via Natural or Artificial Opening (ICD-10-PCS; principal; 2022-07-03)
DX: N17.0 Acute kidney failure with tubular necrosis (principal); E87.1 Hypo-osmolality and hyponatremia; N13.39 Other hydronephrosis; N13.9 Obstructive and reflux uropathy, unspecified; E87.6 Hypokalemia; I12.9 Hypertensive chronic kidney disease with stage 1 through stage 4 chronic kidney disease, or unspecified chronic kidney disease; N18.30 Chronic kidney disease, stage 3 unspecified; D63.1 Anemia in chronic kidney disease; I25.10 Atherosclerotic heart disease of native coronary artery without angina pectoris; I48.91 Unspecified atrial fibrillation; M54.6 Pain in thoracic spine; I25.2 Old myocardial infarction; Z90.79 Acquired absence of other genital organ(s); Z85.46 Personal history of malignant neoplasm of prostate; Z92.3 Personal history of irradiation; Z95.5 Presence of coronary angioplasty implant and graft; Z86.79 Personal history of other diseases of the circulatory system
CPT/HCPCS: J1644

== ENCOUNTER 2022-08-15 09:15 | Day surgery (SDC) | payer OTHER, MEDICARE ==
[~2022-08-15] VITALS: Ht 172.7 cm; Wt 77.1 kg
[~2022-08-15 09:15] MED LIST changes: +ELIQUIS2.5 MG PO; +LABETALOL HYDR200 MG PO; +LISINOP/HCTZ1 TA2 PO; +OMEPRAZOLE20 MG PO
[2022-08-15] MEDS ORDERED: ASPIRINCHW 81MG PO (09:50)
[2022-08-15 13:25] VITALS: BP 146/76
== END 2022-08-15 13:05 | disposition home or self-care (01) | DRG 694 ==
LOC: ORM 09:15
PROVIDERS: ATTEND Urology
PROC: 0TJB8ZZ Inspection of Bladder, Via Natural or Artificial Opening Endoscopic (ICD-10-PCS; principal; 2022-08-15)
DX: N13.39 Other hydronephrosis (principal); C79.11 Secondary malignant neoplasm of bladder; I10 Essential (primary) hypertension; C61 Malignant neoplasm of prostate; J44.9 Chronic obstructive pulmonary disease, unspecified; I25.10 Atherosclerotic heart disease of native coronary artery without angina pectoris; E78.5 Hyperlipidemia, unspecified; Z87.891 Personal history of nicotine dependence; Z86.79 Personal history of other diseases of the circulatory system; Z95.5 Presence of coronary angioplasty implant and graft; R33.9 Retention of urine, unspecified; I25.2 Old myocardial infarction; Z85.46 Personal history of malignant neoplasm of prostate; Z98.890 Other specified postprocedural states
CPT/HCPCS: C1769; J1956; Q9966

== ENCOUNTER 2022-08-15 14:38 | Emergency (ER) | payer OTHER, MEDICARE ==
[~2022-08-15] VITALS: Ht 172.7 cm; Wt 77.1 kg
[~2022-08-15 14:38] MED LIST changes: +ASPIRINCHW 81MG PO
[2022-08-15 15:13] VITALS: BP 160/86
[2022-08-15 15:16] VITALS: BP 171/88
[2022-08-15 16:09] VITALS: BP 171/88
== END 2022-08-15 16:14 | disposition home or self-care (01) | DRG 696 ==
LOC: ED 14:38
DX: R33.9 Retention of urine, unspecified (principal); I10 Essential (primary) hypertension; I25.2 Old myocardial infarction; Z85.46 Personal history of malignant neoplasm of prostate; Z95.5 Presence of coronary angioplasty implant and graft; Z98.890 Other specified postprocedural states